=== PATIENT | female | born 2000 | race Caucasian/White ===

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

== ENCOUNTER 2021-01-20 08:42 | Emergency (ER) | payer SELFPAY ==
[~2021-01-20] VITALS: Ht 160 cm; Wt 72.6 kg
[~2021-01-20 08:42] MED LIST changes: +CEFUROXIME AXE500 MG PO
== END 2021-01-20 10:15 | disposition home or self-care (01) ==
LOC: ED 08:42
DX: U07.1 COVID-19 (principal)

== ENCOUNTER 2022-07-31 15:35 | Emergency (ER) | payer OTHER ==
[~2022-07-31] VITALS: Ht 160 cm; Wt 89.8 kg
[2022-07-31 16:12] LABS: HEMATOCRIT 35.3 % (37.0-47.0); MEAN CORPUSCULAR HGB 30.2 pg (27.0-31.0); MEAN CORPUSCULAR HGB CONC 33.1 g/dl (33.0-37.0); MEAN PLATELET VOLUME 10.5 fl (9.6-12.3); PLATELET COUNT AUTOMATED 236 10*3/uL (130-400); RED BLOOD COUNT 3.88 10*6/uL (4.10-5.10); RED CELL DISTRI WIDTH 12.4 % (0-14.5); WHITE BLOOD COUNT 15.5 10*3/uL (4.8-10.8)
[2022-07-31 16:12] LABS: BILIRUBIN Negative (Negative); BLOOD 1+ (Negative); CLARITY Cloudy (Clear); COLOR Yellow (Yellow); GLUCOSE Trace (Negative); KETONE Trace (Negative); LEUKO ESTERASE 1+ (Negative); NITRITE Negative (Negative); SPECIFIC GRAVITY >= 1.030 (1.001-1.030)
[2022-07-31 16:14] LABS: MANUAL DIFF REFLEX YES
[2022-07-31 16:35] LABS: ALKALINE PHOSPHATASE 71 U/L (46-116); BUN 11 mg/dl (9-23); CHLORIDE 107 mmol/L (98-107); POTASSIUM 3.5 mmol/L (3.4-5.1); SGPT/ALT 28 U/L (10-49); TOTAL PROTEIN 6.2 gm/dL (6.0-8.0)
[2022-07-31 16:39] LABS: BASOPHILS 1 % (0-1); BURR CELLS FEW; PLATELET SUFFICIENCY NORMAL (NORMAL); TOTAL CELLS COUNTED 100 #CELLS
[2022-07-31 18:00] LABS: EPITHELIAL CELLS 41-50
[2022-07-31] MEDS ORDERED: MACROBID100 M1 PO (18:04)
== END 2022-07-31 18:28 | disposition home or self-care (01) ==
LOC: ED 15:35
PROVIDERS: Physician Assistant
DX: O23.42 Unspecified infection of urinary tract in pregnancy, second trimester (principal); N39.0 Urinary tract infection, site not specified; Z88.1 Allergy status to other antibiotic agents; Z98.890 Other specified postprocedural states; Z3A.21 21 weeks gestation of pregnancy

== ENCOUNTER 2023-10-09 19:56 | Emergency (ER) | payer OTHER ==
[~2023-10-09] VITALS: Ht 160 cm; Wt 72.6 kg
[~2023-10-09 19:56] MED LIST changes: +MACROBID100 M1 PO
[2023-10-09 20:34] LABS: BILIRUBIN Negative (Negative); BLOOD Negative (Negative); CLARITY Clear (Clear); COLOR Yellow (Yellow); GLUCOSE Negative (Negative); KETONE Negative (Negative); LEUKO ESTERASE 1+ (Negative); NITRITE Negative (Negative)
[2023-10-09 20:44] LABS: BACTERIA TRACE; RBC 0-2 rbc/hpf (0-2); WBC 51-100 wbc/hpf (0-5)
[2023-10-09] MEDS ORDERED: SEPTDS PO (20:52)
[2023-10-09] MEDS ORDERED: Sulfamethoxazole/Trimethopri 1 TAB TAB PO ONE (20:55)
== END 2023-10-09 21:10 | disposition home or self-care (01) ==
LOC: ED 19:56
PROVIDERS: Physician Assistant Medical
DX: N39.0 Urinary tract infection, site not specified (principal); Z88.1 Allergy status to other antibiotic agents; Z98.890 Other specified postprocedural states

== ENCOUNTER 2024-06-08 07:20 | Emergency (ER) | payer OTHER ==
[~2024-06-08] VITALS: Ht 160 cm; Wt 81.6 kg
[~2024-06-08 07:20] MED LIST changes: +SEPTDS PO
[2024-06-08] MEDS ORDERED: Ketorolac Tromethamine 15 MG/ML VIAL IV ONE (07:40)
[2024-06-08] MEDS ORDERED: Metoclopramide Hydrochloride 10 MG/2 ML VIAL IV ONE (07:40)
[2024-06-08] MEDS ORDERED: diphenhydrAMINE hydrochloride 50 MG/ML VIAL IV ONE (07:40)
[2024-06-08] MEDS ORDERED: SODIUM CHLORIDE 0.9% 1,000 ML IV ONE (07:40)
[2024-06-08 07:49] LABS: BASO % 0.3 % (0.0-1.0); EOS % 0.1 % (1.0-4.0); HEMATOCRIT 44.7 % (37.0-47.0); MEAN CELL VOLUME 87.3 fl (81.0-99.0); MEAN CORPUSCULAR HGB 27.9 pg (27.0-31.0); MEAN PLATELET VOLUME 10.3 fl (9.6-12.3); MONO # 1.2 10*3/uL (0.1-1.0); MONO % 11.8 % (3.0-9.0); NEUT # 7.7 10*3/uL (2.3-7.9); NEUT % 75.1 % (47.0-73.0); PLATELET COUNT AUTOMATED 217 10*3/uL (130-400); RED BLOOD COUNT 5.12 10*6/uL (4.10-5.10); RED CELL DISTRI WIDTH 11.7 % (0-14.5); WHITE BLOOD COUNT 10.3 10*3/uL (4.8-10.8)
[2024-06-08 08:19] LABS: BUN 10 mg/dl (9-23); CHLORIDE 103 mmol/L (98-107); POTASSIUM 4.1 mmol/L (3.4-5.1)
[2024-06-08] MEDS ORDERED: LEVOFLOXACIN750 M2 PO (09:12)
== END 2024-06-08 10:23 | disposition home or self-care (01) ==
LOC: ED 07:20
PROVIDERS: Emergency Medicine
DX: J32.9 Chronic sinusitis, unspecified (principal); R11.2 Nausea with vomiting, unspecified; Z88.1 Allergy status to other antibiotic agents; Z79.2 Long term (current) use of antibiotics

== ENCOUNTER 2024-06-30 14:43 | Emergency (ER) | payer BC ==
[~2024-06-30] VITALS: Wt 81.6 kg
[~2024-06-30 14:43] MED LIST changes: +LEVOFLOXACIN750 M2 PO
[2024-06-30] MEDS ORDERED: Ciprofloxacin Hydrochloride 500 MG TAB PO ONE (15:00)
[2024-06-30] MEDS ORDERED: CIPRO500 MG PO (15:12)
== END 2024-06-30 17:40 | disposition home or self-care (01) ==
LOC: ED 14:43
DX: S91.331A Puncture wound without foreign body, right foot, initial encounter (principal); Z88.1 Allergy status to other antibiotic agents; Z98.890 Other specified postprocedural states; W45.0XXA Nail entering through skin, initial encounter; Y93.89 Activity, other specified; Y92.89 Other specified places as the place of occurrence of the external cause; Y99.8 Other external cause status

== ENCOUNTER 2024-07-09 13:51 | Emergency (ER) | payer BC ==
[~2024-07-09] VITALS: Ht 160 cm; Wt 81.6 kg
[~2024-07-09 13:51] MED LIST changes: +CIPRO500 MG PO
[2024-07-09] MEDS ORDERED: OXYCODONE HCL (IR) 5 MG TAB PO ONE (14:10)
== END 2024-07-09 18:35 | disposition short-term general hospital (02) ==
LOC: ED 13:51
DX: S22.078A Other fracture of T9-T10 vertebra, initial encounter for closed fracture (principal); S22.088A Other fracture of T11-T12 vertebra, initial encounter for closed fracture; Z88.1 Allergy status to other antibiotic agents; W17.89XA Other fall from one level to another, initial encounter; Y93.89 Activity, other specified; Y92.009 Unspecified place in unspecified non-institutional (private) residence as the place of occurrence of the external cause; Y99.8 Other external cause status

== ENCOUNTER 2025-03-20 08:27 | Emergency (ER) | payer OTHER ==
[~2025-03-20] VITALS: Ht 160 cm; Wt 79.4 kg
[2025-03-20] MEDS ORDERED: VIBRAMYCIN100 MG PO (08:45)
== END 2025-03-20 09:04 | disposition home or self-care (01) ==
LOC: ED 08:27
DX: L73.9 Follicular disorder, unspecified (principal); M79.622 Pain in left upper arm; Z88.1 Allergy status to other antibiotic agents; Z79.2 Long term (current) use of antibiotics